=== PATIENT | male | born 2000 | race Caucasian/White ===

== ENCOUNTER 2018-05-18 18:54 | Inpatient (IN) | payer BC ==
[~2018-05-18] VITALS: Ht 190.5 cm; Wt 97.9 kg
[2018-05-18] MEDS ORDERED: GABA-531 PO (19:17)
[2018-05-18] MEDS ORDERED: OLAN10TA3 PO (19:17)
[2018-05-18] MEDS ORDERED: PALI234D IM (19:17)
[2018-05-18] MEDS ORDERED: DIVA-78 PO (19:17)
[2018-05-18] MEDS ORDERED: BENZ2TAB10 PO (19:17)
[2018-05-18 19:53] LABS: BASOPHILS % (AUTO) 0.5 % (0.0-2.0); EOSINOPHILS % (AUTO) 1.8 % (1.0-6.0); HEMATOCRIT 43.8 % (41-53); LYMPHOCYTES # (AUTO) 2.6 K/uL (1.0-4.8); LYMPHOCYTES % (AUTO) 24.6 % (22.0-44.0); MEAN CORPUSCULAR HEMOGLOBIN 29.6 pg (26.0-34.0); MEAN CORPUSCULAR HGB CONC 34.4 G/dL (31.0-37.0); MEAN CORPUSCULAR VOLUME 86 fL (80-100); MONOCYTES # (AUTO) 1.2 K/uL (0.1-1.0); MONOCYTES % (AUTO) 11.6 % (2.0-9.0); NEUTROPHILS # (AUTO) 6.4 K/uL (1.8-7.7); NEUTROPHILS % (AUTO) 61.5 % (40.0-70.0); PLATELET COUNT (AUTO) 322 K/uL (150-450); RED BLOOD CELL COUNT(AUTO) 5.08 MIL/uL (4.50-5.90); RED CELL DISTRIBUTION WIDTH 13.8 % (11.5-14.5)
[2018-05-18 20:06] LABS: ANION GAP 9 mmol/L (8-16); CALCIUM, TOTAL 8.9 mg/dL (8.8-10.5); CARBON DIOXIDE 28 mmol/L (22-29); CHLORIDE 104 mmol/L (98-107); CREATININE 0.82 mg/dL (0.60-1.30); GLOMERULAR FILTR. RATE CALC > 60 mL/min (>60); GLUCOSE,RANDOM 95 mg/dL (70-110); POTASSIUM 3.8 mmol/L (3.5-5.1); SODIUM SERUM 141 mmol/L (136-145); UREA NITROGEN, BLOOD 4 mg/dL (7-18)
[2018-05-18 20:10] LABS: ALANINE AMINOTRANSFERASE 23 U/L (12-78); ALKALINE PHOSPHATASE 66 U/L (46-116); ASPARTATE AMINOTRANSFERASE 24 U/L (15-37); BILIRUBIN,TOTAL 0.5 mg/dL (0.1-1.0); TOTAL PROTEIN, SERUM 7.8 g/dL (6.4-8.2)
[2018-05-18 20:10] LABS: AMPHET/METH SCREEN,URINE NEGATIVE (NEGATIVE); BARBITURATE SCREEN, URINE NEGATIVE (NEGATIVE); BENZODIAZEPINES SCREEN,URINE NEGATIVE (NEGATIVE); CANNABINOID SCREEN,URINE NEGATIVE (NEGATIVE); COCAINE SCREEN,URINE NEGATIVE (NEGATIVE); METHADONE SCREEN, URINE NEGATIVE (NEGATIVE); OPIATE SCREEN,URINE NEGATIVE (NEGATIVE)
[2018-05-18 20:17] LABS: PHENCYCLIDINE SCREEN,URINE NEGATIVE (NEGATIVE)
[2018-05-18] MEDS ORDERED: ZOLPIDEM TARTRATE 10 MG TABLET PO PRN (20:30)
[2018-05-18 20:54] LABS: HEMOGLOBIN A1C 5.7 % (4.5-6.2)
[2018-05-18] MEDS ORDERED: DiphenhydrAMINE HCL 50 MG/ML VIAL IM ONE (21:30)
[2018-05-18] MEDS ORDERED: LORazepam 2 MG/ML VIAL IM ONE (21:30)
[2018-05-18] MEDS ORDERED: HALOPERIDOL LACTATE 5 MG/ML VIAL IM ONE (21:30)
[2018-05-18 22:16] LABS: CHOL/HDL RATIO 3.4 (4.2-7.3); CHOLESTEROL 168 mg/dL (131-200); FREE T4 (FREE THYROXINE) 0.85 ng/dL (0.76-1.46); HDL CHOLESTEROL 49 mg/dL (40-60); LDL CHOL (CALC.) 108 mg/dL (0-130); TRIGLYCERIDES 56 mg/dL (15-150)
[2018-05-19 00:21] VITALS: BP 128/90
[2018-05-19] MEDS ORDERED: PNEUMOCOCCAL VACCINE POLYVALENT 0.5 ML VIAL [PPSV23] IM ONE (00:30)
[2018-05-19] MEDS ORDERED: DOCUSATE SODIUM 100 MG CAPSULE PO PRN (07:30)
[2018-05-19] MEDS ORDERED: ACETAMINOPHEN 325 MG TABLET PO PRN (07:30)
[2018-05-19] MEDS ORDERED: LOPERAMIDE HCL 2 MG CAPSULE PO PRN (07:30)
[2018-05-19] MEDS ORDERED: CloNIDine HCL 0.1 MG TABLET PO PRN (07:30)
[2018-05-19] MEDS ORDERED: GuaiFENesin/D-METHORPHAN [SUGAR-FREE] 200-20MG/10 ML SYRUP UDCUP PO PRN (07:30)
[2018-05-19] MEDS ORDERED: MAG HYDROX/AL HYDROX/SIMETH ES 30 ML SUSPENSION UDCUP PO PRN (07:30)
[2018-05-19] MEDS ORDERED: PETROLATUM,WHITE 71 GM JELLY TP PRN (07:30)
[2018-05-19] MEDS ORDERED: ALBUTEROL SULFATE HFA 90 MCG/PUFF 8 GM INHALER IH PRN (07:30)
[2018-05-19] MEDS ORDERED: MAGNESIUM HYDROXIDE SUSPENSION 30 ML UDCUP PO PRN (07:30)
[2018-05-19] MEDS ORDERED: IBUPROFEN 400 MG TABLET PO PRN (07:30)
[2018-05-19] MEDS ORDERED: ONDANSETRON HCL 4 MG TABLET PO PRN (07:30)
[2018-05-19] MEDS: LORazepam 2 MG TABLET PO PRN ×2 (08:54→13:11)
[2018-05-19] MEDS: NICOTINE 14 MG/24 HOUR PATCH TD PRN (08:54)
[2018-05-19] MEDS: HALOPERIDOL 5 MG TABLET PO PRN ×2 (08:55→13:11)
[2018-05-19 10:53] VITALS: BP 125/78
[2018-05-19] MEDS ORDERED: PALI156D IM (12:46)
[2018-05-19] MEDS: DIVALPROEX SODIUM 500 MG DR TABLET PO SCH (13:12)
[2018-05-19] MEDS: OLANZapine 10 MG RAPDIS TABLET PO SCH ×2 (17:00→22:23)
[2018-05-19] MEDS: BENZTROPINE MESYLATE 2 MG TABLET PO SCH (22:22)
[2018-05-19] MEDS: GABAPENTIN 300 MG CAPSULE PO SCH (22:23)
[2018-05-20 06:07] LABS: BASOPHILS % (AUTO) 0.4 % (0.0-2.0); EOSINOPHILS % (AUTO) 5.4 % (1.0-6.0); HEMOGLOBIN 15.1 g/dL (13.5-17.5); LYMPHOCYTES # (AUTO) 1.9 K/uL (1.0-4.8); LYMPHOCYTES % (AUTO) 22.5 % (22.0-44.0); MEAN CORPUSCULAR HEMOGLOBIN 29.9 pg (26.0-34.0); MEAN CORPUSCULAR HGB CONC 34.2 G/dL (31.0-37.0); MEAN CORPUSCULAR VOLUME 87 fL (80-100); MONOCYTES # (AUTO) 1.2 K/uL (0.1-1.0); MONOCYTES % (AUTO) 13.4 % (2.0-9.0); NEUTROPHILS % (AUTO) 58.3 % (40.0-70.0); PLATELET COUNT (AUTO) 300 K/uL (150-450); RED BLOOD CELL COUNT(AUTO) 5.04 MIL/uL (4.50-5.90)
[2018-05-20] MEDS: NICOTINE 14 MG/24 HOUR PATCH TD PRN (06:23)
[2018-05-20 06:34] LABS: HEMOGLOBIN A1C 5.5 % (4.5-6.2)
[2018-05-20 06:36] LABS: ALANINE AMINOTRANSFERASE 21 U/L (12-78); ALBUMIN 3.4 g/dL (3.4-5.0); ALKALINE PHOSPHATASE 60 U/L (46-116); ANION GAP 6 mmol/L (8-16); ASPARTATE AMINOTRANSFERASE 28 U/L (15-37); BILIRUBIN,TOTAL 0.5 mg/dL (0.1-1.0); CALCIUM, TOTAL 8.6 mg/dL (8.8-10.5); CARBON DIOXIDE 30 mmol/L (22-29); CHLORIDE 105 mmol/L (98-107); CHOL/HDL RATIO 4.2 (4.2-7.3); CHOLESTEROL 160 mg/dL (131-200); CREATININE 0.85 mg/dL (0.60-1.30); GLOMERULAR FILTR. RATE CALC > 60 mL/min (>60); GLUCOSE,RANDOM 82 mg/dL (70-110); HDL CHOLESTEROL 38 mg/dL (40-60); LDL CHOL (CALC.) 105 mg/dL (0-130); POTASSIUM 4.3 mmol/L (3.5-5.1); SODIUM SERUM 141 mmol/L (136-145); THYROID STIMULATING HORMONE 2.33 uIU/mL (0.36-3.74); TRIGLYCERIDES 86 mg/dL (15-150); UREA NITROGEN, BLOOD 16 mg/dL (7-18)
[2018-05-20] MEDS: HALOPERIDOL 5 MG TABLET PO PRN ×2 (08:32→20:06)
[2018-05-20] MEDS: DIVALPROEX SODIUM 500 MG DR TABLET PO SCH (08:32)
[2018-05-20] MEDS: OLANZapine 10 MG RAPDIS TABLET PO SCH ×2 (08:32→17:56)
[2018-05-20] MEDS: LORazepam 2 MG TABLET PO PRN ×2 (08:32→20:07)
[2018-05-20] MEDS ORDERED: CloZAPine 25 MG TABLET PO SCH (09:00)
[2018-05-20 09:18] VITALS: BP 153/87
[2018-05-20] MEDS ORDERED: DiphenhydrAMINE HCL 50 MG/ML VIAL IM ONE (14:30)
[2018-05-20] MEDS ORDERED: LORazepam 2 MG/ML VIAL IM ONE (14:30)
[2018-05-20] MEDS ORDERED: HALOPERIDOL LACTATE 5 MG/ML VIAL IM ONE (14:30)
[2018-05-20] MEDS: BENZTROPINE MESYLATE 2 MG TABLET PO SCH (20:05)
[2018-05-20] MEDS: GABAPENTIN 300 MG CAPSULE PO SCH (20:05)
[2018-05-20 20:15] VITALS: BP 126/88
[2018-05-21] MEDS: HALOPERIDOL 5 MG TABLET PO PRN ×2 (07:50→12:46)
[2018-05-21] MEDS: LORazepam 2 MG TABLET PO PRN ×2 (07:50→12:45)
[2018-05-21] MEDS: DIVALPROEX SODIUM 500 MG DR TABLET PO SCH (07:51)
[2018-05-21] MEDS: OLANZapine 10 MG RAPDIS TABLET PO SCH ×2 (07:51→16:26)
[2018-05-21 08:46] VITALS: BP 123/89
[2018-05-21] MEDS ORDERED: CloZAPine 25 MG TABLET PO SCH ×2 (09:00→21:00)
[2018-05-21 17:23] VITALS: BP 128/91
[2018-05-21] MEDS: GABAPENTIN 300 MG CAPSULE PO SCH (21:22)
[2018-05-21] MEDS: BENZTROPINE MESYLATE 2 MG TABLET PO SCH (21:22)
[2018-05-22] MEDS: HALOPERIDOL 5 MG TABLET PO PRN ×3 (07:38→17:40)
[2018-05-22] MEDS: OLANZapine 10 MG RAPDIS TABLET PO SCH ×2 (07:40→16:33)
[2018-05-22] MEDS: DIVALPROEX SODIUM 500 MG DR TABLET PO SCH (07:40)
[2018-05-22] MEDS: LORazepam 2 MG TABLET PO PRN ×3 (07:40→17:40)
[2018-05-22] MEDS ORDERED: CloZAPine 25 MG TABLET PO SCH ×2 (09:00→21:00)
[2018-05-22 09:19] VITALS: BP 148/88
[2018-05-22 18:59] VITALS: BP 136/82
[2018-05-22] MEDS: GABAPENTIN 300 MG CAPSULE PO SCH (22:32)
[2018-05-22] MEDS: BENZTROPINE MESYLATE 2 MG TABLET PO SCH (22:32)
[2018-05-23] MEDS: DIVALPROEX SODIUM 500 MG DR TABLET PO SCH (08:29)
[2018-05-23] MEDS: NICOTINE 14 MG/24 HOUR PATCH TD PRN (08:29)
[2018-05-23] MEDS: CloZAPine 25 MG TABLET PO SCH ×2 (08:29→20:44)
[2018-05-23] MEDS: OLANZapine 10 MG RAPDIS TABLET PO SCH ×2 (08:29→16:04)
[2018-05-23] MEDS: LORazepam 2 MG TABLET PO PRN (08:30)
[2018-05-23] MEDS: HALOPERIDOL 5 MG TABLET PO PRN (08:30)
[2018-05-23 13:47] VITALS: BP 145/90
[2018-05-23 18:38] VITALS: BP 142/84
[2018-05-23] MEDS: GABAPENTIN 300 MG CAPSULE PO SCH (21:52)
[2018-05-23] MEDS: BENZTROPINE MESYLATE 2 MG TABLET PO SCH (21:52)
[2018-05-24 08:00] VITALS: BP 145/118
[2018-05-24] MEDS: DIVALPROEX SODIUM 500 MG DR TABLET PO SCH (08:02)
[2018-05-24] MEDS: CloZAPine 25 MG TABLET PO SCH ×2 (08:02→20:27)
[2018-05-24] MEDS: OLANZapine 10 MG RAPDIS TABLET PO SCH ×2 (08:02→16:07)
[2018-05-24] MEDS: HALOPERIDOL 5 MG TABLET PO PRN (08:02)
[2018-05-24] MEDS: LORazepam 2 MG TABLET PO PRN (08:02)
[2018-05-24 17:53] VITALS: BP 140/86
[2018-05-24] MEDS: GABAPENTIN 300 MG CAPSULE PO SCH (20:27)
[2018-05-24] MEDS: NICOTINE 14 MG/24 HOUR PATCH TD PRN (20:27)
[2018-05-24] MEDS: BENZTROPINE MESYLATE 2 MG TABLET PO SCH (20:27)
[2018-05-25 06:42] LABS: BASOPHILS % (AUTO) 0.6 % (0.0-2.0); EOSINOPHILS % (AUTO) 7.7 % (1.0-6.0); HEMATOCRIT 45.6 % (41-53); HEMOGLOBIN 15.6 g/dL (13.5-17.5); LYMPHOCYTES # (AUTO) 1.9 K/uL (1.0-4.8); LYMPHOCYTES % (AUTO) 31.5 % (22.0-44.0); MEAN CORPUSCULAR HEMOGLOBIN 29.8 pg (26.0-34.0); MEAN CORPUSCULAR HGB CONC 34.2 G/dL (31.0-37.0); MEAN CORPUSCULAR VOLUME 87 fL (80-100); MONOCYTES # (AUTO) 0.7 K/uL (0.1-1.0); MONOCYTES % (AUTO) 11.3 % (2.0-9.0); NEUTROPHILS # (AUTO) 2.9 K/uL (1.8-7.7); NEUTROPHILS % (AUTO) 48.9 % (40.0-70.0); PLATELET COUNT (AUTO) 322 K/uL (150-450); RED BLOOD CELL COUNT(AUTO) 5.23 MIL/uL (4.50-5.90)
[2018-05-25] MEDS: OLANZapine 10 MG RAPDIS TABLET PO SCH (08:10)
[2018-05-25] MEDS: DIVALPROEX SODIUM 500 MG DR TABLET PO SCH (08:10)
[2018-05-25] MEDS ORDERED: CloZAPine 25 MG TABLET PO SCH (09:00)
[2018-05-25 09:51] VITALS: BP 144/61
[2018-05-25] MEDS ORDERED: CLOZ100 PO (17:06)
[2018-05-25] MEDS ORDERED: CLOZ25TA4 PO (17:06)
[2018-05-25 17:22] VITALS: BP 134/90
[2018-05-25] MEDS ORDERED: CloZAPine 100 MG TABLET PO SCH (21:00)
[2018-05-26] MEDS ORDERED: CloZAPine 25 MG TABLET PO SCH (09:00)
[2018-05-26] MEDS ORDERED: CloZAPine 100 MG TABLET PO SCH (21:00)
[2018-05-27] MEDS ORDERED: CloZAPine 25 MG TABLET PO SCH (09:00)
[2018-05-27] MEDS ORDERED: CloZAPine 100 MG TABLET PO SCH (21:00)
[2018-05-28] MEDS ORDERED: CloZAPine 100 MG TABLET PO SCH (09:00)
[2018-05-30] MEDS ORDERED: CloZAPine 25 MG TABLET PO SCH (09:00)
[2018-05-30] MEDS ORDERED: CloZAPine 100 MG TABLET PO SCH (21:00)
[2018-05-31] MEDS ORDERED: CloZAPine 25 MG TABLET PO SCH (09:00)
[2018-05-31] MEDS ORDERED: CloZAPine 100 MG TABLET PO SCH (21:00)
[2018-06-01] MEDS ORDERED: CloZAPine 100 MG TABLET PO SCH ×2 (09:00→21:00)
== END 2018-05-25 17:25 | DRG 885 ==
LOC: EMS 18:55 → 3EC 20:52
PROVIDERS: ADMIT Psychiatry & Neurology Child & Adolescent Psychiatry; ATTEND Psychiatry & Neurology Child & Adolescent Psychiatry
DX: F25.0 Schizoaffective disorder, bipolar type (principal); F12.90 Cannabis use, unspecified, uncomplicated; F14.90 Cocaine use, unspecified, uncomplicated; F17.200 Nicotine dependence, unspecified, uncomplicated; F31.9 Bipolar disorder, unspecified; F43.10 Post-traumatic stress disorder, unspecified; F90.9 Attention-deficit hyperactivity disorder, unspecified type; F19.10 Other psychoactive substance abuse, uncomplicated; F41.9 Anxiety disorder, unspecified; R00.0 Tachycardia, unspecified; Z28.21 Immunization not carried out because of patient refusal; Z79.899 Other long term (current) drug therapy; Z71.6 Tobacco abuse counseling; Z71.51 Drug abuse counseling and surveillance of drug abuser
CPT/HCPCS: 83036; 84439; 84443; 96372; G0480; J1200; J1630; J2060